=== PATIENT | female | born 1965 | race Caucasian/White ===

== ENCOUNTER 2023-06-25 12:22 | Emergency (ER) | payer OTHER, SELFPAY ==
[2023-06-25 12:28] VITALS: BP 120/80
[2023-06-25 13:56] VITALS: BP 102/59
[2023-06-25 13:57] VITALS: BMI 35.5
[2023-06-25 14:00] VITALS: BP 113/67
[2023-06-25] MEDS: TORADOL 15 MG IV (14:01)
[2023-06-25 14:25] LABS: % Basophils 0.7 % (0-2); % Eosinophils 1.1 % (0-6); % Immature Granulocytes 0.4 % (0-0.5); % Lymphocytes 28.1 % (20.5-51.1); % Monocytes 12.8 % (1.7-9.3); % Neutrophils 56.9 % (42.2-75.2); Absolute Basophils 0.1 10^3/uL (0-0.2); Absolute Eosinophils 0.1 10^3/uL (0-0.7); Absolute Lymphocytes 2.1 10^3/uL (1.2-3.4); Absolute Neutrophils 4.3 10^3/uL (1.4-6.5); Hemoglobin 12.5 g/dL (12.0-16.0); Mean Corp Hgb Conc. 33.8 g/dL (33.0-37.0); Mean Corpuscular Hgb 30.4 pg (27.0-31.0); Mean Platelet Volume 9.9 fL (7.4-10.4); Nucleated Red Blood Cells % 0 %; Platelet Count 269 10^3/uL (130-400); Red Blood Cell Count 4.11 10^6/uL (4.20-5.40); Red Cell Dist. Width 12.5 % (11.5-14.5); White Blood Cell Count 7.6 10^3/uL (4.8-10.8)
[2023-06-25 14:36] LABS: ALT (SGPT) 20 U/L (0-35); AST (SGOT) 20 U/L (14-36); Albumin 4.3 g/dl (3.5-5.0); Alkaline Phosphatase 89 U/L (38-126); Blood Urea Nitrogen 14 mg/dl (7-17); Carbon Dioxide 29 mmol/L (22-30); Chloride 105 mmol/L (98-107); Estimated Creatinine Clearance 73 ml/min; Glucose 99 mg/dl (70-99); Potassium 3.9 mmol/L (3.5-5.1); Sodium 137 mmol/L (135-145); Total Bilirubin 0.5 mg/dl (0.2-1.3); Total Protein 7.3 g/dl (6.3-8.2); eGFR > 60.00
[2023-06-25 14:48] LABS: Troponin I < 0.012 ng/ml
[2023-06-25 15:00] VITALS: BP 98/69
--- NOTE | 2023-06-25 15:09 | ED.GENMED ---
History of Present Illness
General
Chief Complaint: Chest Pain
Time Seen by Provider: 06/25/23 13:37
Travel History
Have you had any contact with someone who has COVID-19?: No
Do you have any symptoms of coronavirus? Fever > 100 degrees, chills, cough, shortness of breath, sore throat, loss of taste or smell, muscle aches, or headache?: No
History of Present Illness
History of Present Illness:
57-year-old female with history of hyperlipidemia presents to the emergency department for evaluation of central chest and yesterday. She notes that she had some chills associated with this. Pain is worse when she sits upright or when she moves
her torso, also notes pleuritic nature to it. Denies any recent illnesses or upper respiratory tract infections. No dyspnea, abdominal pain, nausea, or vomiting. Pain is better today than it was yesterday but still remains. Has not taken any
medication for pain control.
Review of Systems
Review of Systems
Allergies reviewed?: Yes
All Other Systems: ROS reviewed and negative except as documented in HPI and ROS
Phy Exam
Physical Exam
Physical Exam:
GEN: Well appearing, NAD, WDWN
HEENT: Oral mucosa moist, no scleral icterus
Cardiac: Regular rate and rhythm, no murmurs
Chest: Reproducible tenderness along the sternocostal joints bilaterally, no deformity
Lung: No respiratory distress, no tachypnea lungs clear to auscultation bilaterally
MSK: No gross deformity or injuries
Skin: Good color, no pallor or jaundice, no rashes
Neuro: AO x3, moves all extremities freely
Psych: Calm, cooperative
Scores
Heart Score for Chest Pain Patients
STEMI patient?: No
History: Slightly or Non-Suspicious
ECG: Normal
Age: >45 - <65 years
Risk Factors: 1 or 2 Risk Factors
Troponin: </= Normal Limit
Heart Score for Chest Pain Patients: 2
Heart Score Risk: 2.5% MACE over next 6 weeks
Course
Orders/Labs/Results
Orders:
Orders
06/25/23 12:32
EKG [Electrocardiogram (*1)] Urgent
Reason for Study: Chest Pain
EKG- Treatment ONCE
06/25/23 13:52
Ketorolac [Toradol] 15 mg IV NOW STA
06/25/23 13:53
CR Chest - 2 Views Urgent
Comment:
Reason For Exam: chest pain
06/25/23 14:16
Complete Blood Count/With Diff Urgent
Comprehensive Metabolic Panel Urgent
Troponin I Urgent
Abnormal Lab Results
06/25/23
14:16
RBC 4.11 L 10^6/uL
(4.20-5.40)
Absolute Monos (auto) 1.0 H 10^3/uL
(0.1-0.6)
Monocytes % 12.8 H %
(1.7-9.3)
06/25/23 14:16
06/25/23 14:16
Vital Signs
Initial and Last Documented VS:
Initial Vital Signs
Temp Pulse Resp BP Pulse Ox
98.4 F 98 16 120/80 96
06/25/23 12:28 06/25/23 12:28 06/25/23 12:28 06/25/23 12:28 06/25/23 12:28
Last Documented Vital Signs
Temp Pulse Resp BP Pulse Ox
98.4 F 98 16 120/80 96
06/25/23 12:28 06/25/23 12:28 06/25/23 12:28 06/25/23 12:28 06/25/23 12:28
MDM/Problems Addressed
MDM/Problems Addressed:
Initial EKG independently interpreted by me shows normal sinus rhythm at a rate of [address] changes concerning for ischemia, QTc of 425
Patient's pain is clearly reproducible and worse with torso movement suggesting musculoskeletal etiology. EKG is nonischemic and troponin is negative. Normal vital signs and no hypoxia is reassuring against pulmonary embolism. Chest x-ray shows
no acute pathology to suggest infectious etiology. Recommend NSAIDs and supportive care
*Critical Care Note
Total Time (30-74mins, 75-104mins- exclusive of procedures): Not Applicable
ED Attending Note
-
Portions of this chart may have been created with voice recognition software.� Occasional wrong word or��sound alike� substitutions may have occurred due to the inherent limitations of voice recognition software.
Discharge Plan
Departure
Patient Disposition: Home (Routine Discharge)
Date of Disposition: 06/25/23
Time of Disposition: 15:09
Patient with high blood pressure during this ER visit?: No
Discharge Problem:
Acute chest wall pain
Instructions: Chest Pain That Is Not Caused by the Heart (DC)
Prescriptions:
New
diclofenac sodium 75 mg tablet,delayed release (DR/EC)
75 mg PO BID PRN (Reason: Pain) Qty: 14 0RF
Referrals:
UNKNOWN - PT DOES,NOT KNOW [Family Provider] -
Interventions
Interventions:
*Risk Screen - Suicide Last Done: 06/25/23 12:28
*General Assessment Last Done: 06/25/23 12:28
*Neglect/Abuse Screening Last Done: 06/25/23 12:28
*ED COVID-19 Vaccine History Last Done: 06/25/23 13:53
ED- Cardiac Assessment Last Done: 06/25/23 13:54
[2023-06-25 15:50] VITALS: BP 98/69
== END 2023-06-25 15:52 | disposition home or self-care (01) ==
LOC: EMR 12:22
PROVIDERS: Physician Assistant; EMERGENCY PHYSICIAN Emergency Medicine
DX: R07.89 Other chest pain (principal); E78.00 Pure hypercholesterolemia, unspecified
CPT/HCPCS: 99283; 96374; 71046; 80053; 84484; 85025; 93005